=== PATIENT | female | born 1935 | race Caucasian/White ===

== ENCOUNTER 2017-04-07 16:43 | Emergency (ER) | payer OTHER ==
[2017-04-07 17:38] LABS: BASOPHILS 0.5 %; BASOPHILS ABSOLUTE 0.02 10/3/uL (0.0-0.16); EOSINOPHILS 2.9 %; EOSINOPHILS ABSOLUTE 0.12 10/3/uL (0.0-0.53); ER CBC TAT 0 Hrs 10 Mins; HEMOGLOBIN 14.7 g/dL (12.0-16.0); IMMATURE GRANULOCYTES 0.2 %; IMMATURE GRANULOCYTES ABSOLUTE 0.01 10/3/uL (0.0-0.11); LYMPHOCYTES 38.6 %; MEAN CORPUS HGB CONC 33.4 g/dL (32.0-36.0); MEAN CORPUSCULAR HEMOGLOB 32.8 pg (26.0-34.0); MEAN CORPUSCULAR VOLUME 98.2 fL (80-100); MONOCYTES 8.9 %; MONOCYTES ABSOLUTE 0.37 10/3/uL (0.21-1.20); NEUTROPHILS 48.9 %; NEUTROPHILS ABSOLUTE 2.03 10/3/uL (2.02-8.40); PLATELET COUNT 214 10/3/uL (150-400); RBC DISTRIBUTION WIDTH 13.7 % (12.0-16.0); RED CELL COUNT 4.48 10/6/uL (4.0-5.6); WHITE BLOOD CELLS 4.2 10/3/uL (4.5-10.5)
[2017-04-07 17:40] LABS: MANUAL DIFF NO %
[2017-04-07 17:53] LABS: BUN (BLOOD UREA NITROGEN) 20 MG/DL (6-23); CALCIUM, SERUM 9.6 MG/DL (8.5-10.4); CHEST PAIN PROFILE TAT 0 Hrs 25 Mins; CHLORIDE, SERUM 107 MMOL/L (96-112); CO2 (CARBON DIOXIDE) 26 MMOL/L (24-34); CREATININE 1.13 MG/DL (0.55-1.02); GFR AFRICAN AMERICAN 52 ML/MIN (>=60); GFR NON AFRICAN AMERICAN 45 ML/MIN (>=60); GLUCOSE, SERUM 92 MG/DL (60-99); POTASSIUM, SERUM 4.4 MMOL/L (3.5-5.3); SODIUM, SERUM 140 MMOL/L (135-148); TROPONIN I <0.02 NG/ML (<0.05)
[2017-04-08 01:16] LABS: INTERNATIONAL NORMAL RATI 1.1 UNITS (-); PARTIAL THROMBO TIME 30.7 SEC (22.5-37.2); PROTIME (NOT ORD) 13.9 SEC (12.0-14.5)
== END 2017-04-08 03:13 | disposition home or self-care (01) ==
LOC: ER 16:43
PROVIDERS: Emergency Medicine
DX: R60.0 Localized edema (principal); I50.9 Heart failure, unspecified; Z88.0 Allergy status to penicillin
CPT/HCPCS: 71010; 80048; 83735; 83880; 84484; 85025; 85379; 85610; 85730; 93005; 93926; 93970; 99284; A9270-GY